=== PATIENT | female | born 1960 | race Asian ===

== ENCOUNTER 2017-03-17 15:54 | Emergency (ER) | payer BC, OTHER ==
[~2017-03-17] VITALS: Ht 162.6 cm; Wt 77.1 kg
--- NOTE | ~2017-03-17 | EKG ---
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
[2017-03-17 16:33] LABS: HEMATOCRIT 44.5 % (37.0-47.0); MCH 29.7 pg (26.0-34.0); MCHC 33.7 g/dL (28.0-37.0); MCV 88.2 fL (80.0-100.0); PLATELET COUNT 164 thou/uL (150-400); RBC 5.04 mil/uL (4.20-5.00); RDW 13.4 % (10.5-14.5); WBC 10.3 thou/uL (4.0-11.0)
[2017-03-17 16:36] LABS: POC CA IONIZED 4.7 mg/dL (4.5-5.3); POC CREATININE 0.7 mg/dL (0.6-1.3); POC POTASSIUM 3.3 mmol/L (3.5-5.1)
[2017-03-17 16:39] LABS: MANUAL DIFF YES
[2017-03-17] MEDS ORDERED: PRINIVIL10 MG PO (16:41)
[2017-03-17 16:42] LABS: ANION GAP 10 mmol/L (7-16); BUN 11 mg/dL (7-18); CHLORIDE 107 mmol/L (98-107); CO2 24 mmol/L (21-32); CREATININE 0.8 mg/dL (0.6-1.0); GLUCOSE 150 mg/dL (74-106); POTASSIUM 3.3 mmol/L (3.5-5.1); SODIUM 141 mmol/L (136-145)
[2017-03-17 16:47] LABS: INR 1.1; PROTIME 11.3 Seconds (9.3-11.4)
[2017-03-17 16:48] LABS: ALBUMIN 3.7 g/dL (3.4-5.0); ALKALINE PHOSPHATASE 74 U/L (46-116); SGOT 23 U/L (15-37); SGPT 31 U/L (30-65); TOTAL BILIRUBIN 0.9 mg/dL (<0.1-1.0); TOTAL PROTEIN 7.9 g/dL (6.4-8.2); TROPONIN-I < 0.04 ng/mL (<0.04-0.07)
[2017-03-17 17:14] LABS: ABSOLUTE NEUTROPHILS 9.1 thou/uL (1.4-8.2); TOTAL CELL COUNT 100
[2017-03-17 19:09] VITALS: BP 146/84
== END 2017-03-17 19:11 | disposition home or self-care (01) ==
LOC: ER 15:54
PROVIDERS: Physician Assistant
DX: R51 Headache (principal); I10 Essential (primary) hypertension; R42 Dizziness and giddiness; R53.1 Weakness

== ENCOUNTER → 2019-04-24 | Outpatient (CLI) | payer BC, OTHER ==
[~2019-04-24] MED LIST: PRINIVIL10 MG PO
== END ==
LOC: RAD 10:51
DX: Z12.31 Encounter for screening mammogram for malignant neoplasm of breast (principal)

== ENCOUNTER → 2019-05-08 | Outpatient (CLI) | payer BC, OTHER | LOC: RAD 01:54 | DX: R92.8 Other abnormal and inconclusive findings on diagnostic imaging of breast (principal) ==

== ENCOUNTER 2019-11-07 12:32 | Emergency (ER) | payer BC, OTHER ==
[~2019-11-07] VITALS: Ht 162.6 cm; Wt 83.9 kg
[2019-11-07 14:27] LABS: ABSOLUTE NEUTROPHILS 10.9 thou/uL (1.4-8.2); BASOPHILS 0.1 % (0.0-2.0); HEMATOCRIT 39.9 % (37.0-47.0); HEMOGLOBIN 13.1 gm/dL (12.0-15.0); LYMPHOCYTES 3.3 % (24.0-44.0); MCH 29.6 pg (26.0-34.0); MCHC 32.8 g/dL (28.0-37.0); MONOCYTES 7.5 % (1.0-8.0); PLATELET COUNT 136 thou/uL (150-400); POLYS 89.1 % (36.0-66.0); RBC 4.44 mil/uL (4.20-5.00); RDW 13.8 % (10.5-14.5); WBC 12.2 thou/uL (4.0-11.0)
[2019-11-07 14:29] LABS: CALCIUM 8.5 mg/dL (8.5-10.1); CREATININE 1.4 mg/dL (0.6-1.0); POTASSIUM 3.3 mmol/L (3.5-5.1)
[2019-11-07 14:36] LABS: ALBUMIN 3.2 g/dL (3.4-5.0); TOTAL BILIRUBIN 1.7 mg/dL (<0.1-1.0)
[2019-11-07 14:56] LABS: URINE BILIRUBIN NEGATIVE (Negative); URINE BLOOD TRACE (Negative); URINE CLARITY CLEAR; URINE COLOR YELLOW; URINE GLUCOSE-RANDOM* NEGATIVE (Negative); URINE KETONES 1+ (Negative); URINE NITRITE-REFLEX NEGATIVE (Negative); URINE PROTEIN (DIPSTICK) 1+ (Negative)
[2019-11-07 15:01] LABS: URINE LEUKOCYTES-REFLEX 1+ (Negative)
[2019-11-07 15:02] LABS: SQUAMOUS 0-3 Few /LPF (0-3)
[2019-11-07 15:03] LABS: BACTERIA-REFLEX 1-9 Few /HPF (None Seen); CASTS None Seen /LPF (None Seen); CRYSTALS None Seen /LPF (None Seen); URINE RBC 0-2 Rare /HPF (0-2); URINE WBC-REFLEX 6-15 Few /HPF (0-5)
[2019-11-07] MEDS ORDERED: METFORMIN HCL500 M3 PO (15:19)
[2019-11-07] MEDS ORDERED: MELOXICAM15 MG PO (15:20)
[2019-11-07 16:40] VITALS: BP 138/94
== END 2019-11-07 16:40 | disposition home or self-care (01) ==
LOC: ER 12:32
PROVIDERS: Physician Assistant
DX: B34.9 Viral infection, unspecified (principal); E86.0 Dehydration; I10 Essential (primary) hypertension